=== PATIENT | female | born 1955 ===

== ENCOUNTER 2023-11-15 05:20 | Day surgery (SDC) | payer OTHER ==
[~2023-11-15 05:20] MED LIST: BUSPIRONE HCL7.5 MG PO; RESTORIL30 M1 PO; RISPERDAL1 MG PO; SYNTHROID88 MCG PO; ZOLOFT100 MG PO; ZOLOFT25 MG PO
[2023-11-15] MEDS ORDERED: POVIDONE-IODINE 118 ML BOTT TOP ONE (06:19)
[2023-11-15] MEDS ORDERED: CEFAZOLIN SODIUM 1,000 MG VIAL ONE (06:19)
[2023-11-15] MEDS ORDERED: CHLORHEXIDINE GLUCONATE 120 ML BOTTLE TOP ONE ×2 (06:48→07:30)
[2023-11-15] MEDS ORDERED: CEFAZOLIN SODIUM 1,000 MG VIAL IV ONE (07:30)
[2023-11-15] MEDS ORDERED: LIDOCAINE HCL 1%/EPINEPHRINE 20ML VIAL IJ ONE (07:33)
[2023-11-15] MEDS ORDERED: GENTAMICIN SULFATE 40 MG/ML VIAL ONE (07:33)
[2023-11-15] MEDS ORDERED: LIDOCAINE HCL 2%/EPINEPHRINE 20ML VIAL IJ ONE (08:15)
[2023-11-15] MEDS ORDERED: GENTAMICIN SULFATE 40 MG/ML VIAL IR ONE (08:15)
[2023-11-15] MEDS ORDERED: MACROBID 100 M100 MG PO (10:29)
[2023-11-15] MEDS ORDERED: TRAM1TAB98 PO (10:30)
== END 2023-11-15 12:30 | disposition home or self-care (01) ==
LOC: CIR.AMB 05:20
PROVIDERS: ATTEND Obstetrics & Gynecology Gynecology
DX: N81.3 Complete uterovaginal prolapse (principal); N81.82 Incompetence or weakening of pubocervical tissue; N81.83 Incompetence or weakening of rectovaginal tissue; E03.9 Hypothyroidism, unspecified; F32.A Depression, unspecified